=== PATIENT | male | born 1955 | race Caucasian/White ===

== ENCOUNTER 2021-03-29 13:56 | Emergency (ER) | payer OTHER, SELFPAY ==
[2021-03-29 13:57] VITALS: BP 169/69; PULSE 72; RESP 16; TEMP 36.8; O2SAT 97; BMI 51.2
--- NOTE | 2021-03-29 14:41 | EDS_ITS ---
HPI History of Present Illness Chief Complaint: Lower Extremity Injury Informant: patient Narrative Narrative: Patient is a 65-year-old male who presents to the emergency department for right knee pain. He states it has been bothering him over the past month and a half after twisting it. Today he was leaving his doctor's office and felt like he twisted it. He is having pain when putting weight on it. He states he been pushing down on the gas pedal because significant pain. He has not taken anything for it. He denies any significant swelling or overlying skin changes. He states that he was supposed to have the knee replaced a long time ago but has been putting it off. He was hoping to do that this winter. He denies any weakness or loss sensation going down the leg. The pain is minimal whenever he keeps it at rest. PFSH PFSH Home Medications amlodipine 10 mg PO DAILY 03/29/21 [History Last Taken Unknown] atorvastatin 20 mg PO DAILY 03/29/21 [History Last Taken Unknown] chlorthalidone 25 mg PO DAILY 03/29/21 [History Last Taken Unknown] dulaglutide [Trulicity] 1.5 mg SUBCUT QWEEK 03/29/21 [History Last Taken Unknown] glimepiride 4 mg PO DAILY 03/29/21 [History Last Taken Unknown] insulin glargine [Lantus U-100 Insulin] 75 unit SUBCUT BREAKFAST 03/29/21 [History Last Taken Unknown] insulin glargine [Lantus U-100 Insulin] 100 - 150 unit SUBCUT QHS 03/29/21 [History Last Taken Unknown] lisinopril 40 mg PO DAILY 03/29/21 [History Last Taken Unknown] pioglitazone 45 mg PO DAILY 03/29/21 [History Last Taken Unknown] Allergy/AdvReac Type Severity Reaction Status Date / Time No Known Allergies Allergy Verified 03/29/21 13:56 Social History Smoking Status: Never smoker ROS ROS ED Constitutional Constitutional ED: Denies chills or fever(s) ENT ENT ED: Denies epistaxis or rhinorrhea Cardiovascular Cardiovascular: Denies chest pain Respiratory/Chest Respiratory/Chest: Denies cough or dyspnea Gastrointestinal Gastrointestinal: Denies abdominal pain, nausea or vomiting Musculoskeletal Musculoskeletal: Reports arthralgias; Denies back pain or neck pain Integumentary Denies rash Neurologic Neurologic: Denies dizziness, headache(s) or weakness EXAM Physical Exam Const Vital Signs: 03/29/21 13:57 Temperature 98.2 F Temperature Source Temporal Pulse Rate 72 Respiratory Rate 16 Blood Pressure 169/69 H Blood Pressure Mean 102 Pulse Ox 97 Oxygen Delivery Method Room Air Positive well nourished and well developed General Appearance ED: well developed and NAD HEENT Reports normocephalic and head/scalp atraumatic Eyes PERRL and EOMs intact bilaterally Neck supple Chest Wall inspection of chest normal Resp normal respiratory effort Cardio regular rate and regular rhythm Extremity Extremity Narrative: Symmetrical edema bilateral lower extremities. No pain with palpation of the knee. Range of motion of the knee is limited due to pain. He otherwise is neurovascular intact. No overlying skin changes. Neuro no sensory deficits noted Sensorium / Orientation: alert Motor Exam: strength 5/5 throughout Psych mental status grossly normal Skin no rashes or lesions noted MDM MDM MDM Narrative Medical decision making narrative: Patient presents to the ED for knee pain after twisting it today. It is difficulty bearing weight due to the pain. Will check x-ray. Heis given a dose of [place] for symptomatic treatment. He does have a brace he works on a chronically does have this with him. Patient's x-ray did not reveal acute fracture or dislocation. There is arthritis present. This time will recommend symptomatic treatment. He is to follow-up with the orthopedic surgeon. I did make a referral for this. He otherwise is to use RICE. Return precautions are reviewed with him. He understands and is agreeable with this plan. Radiography Diagnostic Testing: Radiology Impression Knee X-Ray 03/29/21 14:41 IMPRESSION: No acute bony abnormality. at 1512 Reported and signed by: Booker Kaminski MD Electronically Signed: Booker Kaminski MD at 15:11 EDT Tel , Service support , Discharge Plan Triage Chief Complaint: Lower Extremity Injury ED Provider: Jasen Cabrales Dx/Rx/DC Orders Clinical Impression: Knee pain Instructions: ED Knee Pain of Uncertain Cause Prescriptions: No Action atorvastatin 20 mg tablet 20 mg PO DAILY RF: 0 Lantus U-100 Insulin 100 unit/mL solution 75 unit SUBCUT BREAKFAST RF: 0 pioglitazone 45 mg tablet 45 mg PO DAILY RF: 0 chlorthalidone 25 mg tablet 25 mg PO DAILY RF: 0 amlodipine 10 mg tablet 10 mg PO DAILY RF: 0 glimepiride 4 mg tablet 4 mg PO DAILY RF: 0 lisinopril 40 mg tablet 40 mg PO DAILY RF: 0 Trulicity 1.5 mg/0.5 mL pen injector 1.5 mg SUBCUT QWEEK RF: 0 Lantus U-100 Insulin 100 unit/mL solution 100 - 150 unit subcut QHS RF: 0 Primary Care Provider: Eliel Gee Referrals: Jasen Huddleston DO [STAFF PHYSICIAN] - 2 Days Eliel Gee MD [Primary Care Provider] - Disposition Disposition: Home, Self Care Discharge Date/Time: 03/29/21 15:57
--- NOTE | 2021-03-29 14:41 | RAD_ITS ---
HISTORY: Trauma, injury, lateral pain EXAMINATION/TECHNIQUE: XR Knee 3 Views: COMPARISON: None FINDINGS: BONES/JOINTS: No acute fracture or dislocation. Mild tricompartmental degenerative changes with probable small intra-articular osseous bodies seen in the intracondylar notch. No sclerotic or destructive changes observed. SOFT TISSUES: No soft tissue swelling or gas. No radiopaque foreign body. RAD/Knee 3 Views IMPRESSION: No acute bony abnormality. at 1512 Reported and signed by: Booker Kaminski MD Electronically Signed: Booker Kaminski MD at 15:11 EDT Tel , Service support ,
== END 2021-03-29 15:57 | disposition home or self-care (01) ==
PROVIDERS: Emergency Provider Emergency Medicine; PCP Internal Medicine
DX: M25.561 Pain in right knee (principal); Z79.899 Other long term (current) drug therapy; Z79.4 Long term (current) use of insulin
CPT/HCPCS: 73562; 99282

== ENCOUNTER → 2022-06-06 | Outpatient (CLI) | payer OTHER, SELFPAY ==
[2022-06-06 11:09] LABS: D-Dimer Quantitative (DVT/PE) 0.87 FEU/ug/m (0.27-0.49)
== END | disposition home or self-care (01) ==
LOC: LABSPEC 10:35
PROVIDERS: PCP Internal Medicine; Referring Provider Nurse Practitioner; Visit Provider Nurse Practitioner
DX: R60.0 Localized edema (principal); R06.02 Shortness of breath
CPT/HCPCS: 85379